=== PATIENT | female | born 1955 | race Caucasian/White ===

== ENCOUNTER 2020-09-30 08:54 | Day surgery (SDC) | payer MEDICARE, BC, SELFPAY ==
[2020-09-30 09:19] VITALS: BP 138/70; PULSE 70; RESP 18; TEMP 36.8; O2SAT 98
[2020-09-30] MEDS: Tropicam./Phenyleph. (1/2.5%) 5 ML BTL OD ×3 (09:22→09:35)
[2020-09-30] MEDS: Tetracaine 0.5% 4 ML BTL OD (09:55)
[2020-09-30] MEDS: Lidocaine 2% Jelly 6 ML SYR (09:56)
[2020-09-30] MEDS: Balanced Salt Soln.-PLUS 500 ML BAG (10:02)
[2020-09-30] MEDS: Lidocaine 1% Pres-Free 5 ML VIAL (10:03)
[2020-09-30] MEDS: Duovisc Viscoelastic System EACH 1 EACH (10:03)
[2020-09-30] MEDS: Povidone-Iodine Ophth 30 ML BTL ×2 (10:12→10:17)
[2020-09-30] MEDS: Trypan Blue 0.06% 0.5 ML SYR (10:13)
--- NOTE | 2020-09-30 10:30 | PDOC.DSDIS_ITS ---
Discharge Plan Disposition Patient Disposition: HOME Condition: Good Discharge Details Attending Provider: Jose Gunn Primary Care Provider: Gus Infante Home Meds and New Rx's Prescriptions: No Action multivitamin Tablet 1 tab PO DAILY RF: 0 calcium citrate 200 mg (950 mg) Tablet 600 mg PO DAILY RF: 0 Trosper 3 Fish Oil Capsule 1 cap PO DAILY RF: 0 cholecalciferol (vitamin D3) [Vitamin D3] 50 mcg (2,000 unit) Capsule 50 mcg PO DAILY RF: 0 lutein 6 mg Tablet 6 mg PO DAILY RF: 0 Petadolex 50 mg Capsule 50 mg PO DAILY RF: 0 aspirin 325 mg Tablet 325 mg PO DAILY RF: 0 alpha lipoic acid 50 mg Capsule 50 mg PO DAILY RF: 0 timolol maleate 0.5 % Drops, Once Daily 1 drp OPHTHALMIC (EYE) DAILY RF: 0 brimonidine 0.15 % Drops 1 drp OPHTHALMIC (EYE) QD-BID RF: 0 Discharge Instructions Stand Alone Forms: Post-op Topical Cataract Discharge Orders Discharge Orders: Discharge Order (Routine); Ordered 09/30/20 Ordered By: Jose Gunn DS: Diagnosis Discharge Diagnosis (1) Cortical cataract of right eye: Status: Resolved (2) Nuclear sclerotic cataract of right eye: Status: Resolved (3) Posterior subcapsular age-related cataract, right eye: Status: Resolved (4) Low-tension glaucoma, right eye, severe stage: Status: Chronic
--- NOTE | 2020-09-30 10:31 | ROE_ITS ---
Date of service: 09/30/20 Time of Service: 10:31 Operative Note Operative Note DATE OF PROCEDURE: 09/30/20 PRE-OP DIAGNOSIS: Nuclear/cortical/posterior subcapsular cataract, right eye Poor red reflex, right eye secondary to cataract Normal-tension glaucoma, right eye, severe stage Myopia, with desire to remain myopic postoperatively POST-OP DIAGNOSIS: same PROCEDURE: Cataract extraction using phacoemulsification with intraocular lens implantation, right eye, using capsular staining with Vision Blue SURGEON: Jose Gunn Refer to Anesthesia Record PATHOLOGY: none sent COMPLICATIONS: None Patient was transported to: same day Patient's condition: stable Implants: Jhony and Jhony / [employer] Tecnis [id number] Indications: Progressive visual loss due to cataract, right eye Procedure Description: CATARACT SURGERY OPERATIVE REPORT PREOPERATIVE DIAGNOSIS: 1. Nuclear/cortical/posterior subcapsular cataract, right eye 2. Poor red reflex secondary to #1 3. Normal-tension glaucoma, right eye, severe stage 4. Myopia, right eye, with desire to remain myopic postoperatively. POSTOPERATIVE DIAGNOSIS: Same OPERATION: 1. Cataract extraction using phacoemulsification with posterior chamber intraocular lens implant, right eye. 2. Capsular staining with Vision Blue IOL: IOL Calciminer/Model: Jhony [employer] Jhony / VAL Tecnis [id number] IOL Power: + 23.50 diopters IOL Serial Number: [id number] Optic Diameter: 6.0mm Haptic/Overall Diameter: 13.0mm PHACO INFO: Markus [employer]urion Vision System with OZil and Active Fluidics Cumulative Dispersed Energy (CDE): 12.50 seconds SURGEON: Jose Gunn MD, SOULEYMANE ANESTHESIA: Monitored Anesthesia Care (MAC), with local sub-tenon's anesthetic infiltration COMPLICATIONS: None SPECIMENS: None INDICATIONS FOR PROCEDURE: The patient is a 65-year-old lady with history of normal tension glaucoma of the right eye, severe stage. She has developed a significant nuclear/cortical/posterior subcapsular cataract of the right eye with corrected visual acuity of 2400 in the right eye. She also has a history of myopia and currently reads without glasses. She desires to remain myopic postoperatively with a postoperative refractive target of -2.0 to -2.25 diopters. The option of cataract surgery was offered to the patient and she wished to proceed. PROCEDURE: The correct surgical eye was identified and marked as the right eye and the pupil was dilated in the preoperative area using mydriatics and cyclopl egics. The dilated pupil size was 6.5 mm. Oral sedation was administered in the form of an Imprimis MKO Melt (midazolam 3mg/ketamine 25mg/ondansetron 2mg). The patient was brought to the operating room where cardiopulmonary monitoring was instituted and surgical time-out was performed, confirming the correct operative eye and IOL power. Topical anesthesia was administered and ophthalmic povidone-iodine 5% was instilled into the conjunctival fornices. Lidocaine gel was applied to the cornea and the anibal-ocular area was prepped with Betadine 10% solution and draped in the usual sterile fashion for intraocular surgery, including an aperture drape. A Tegaderm transparent film dressing was cut in half and used to cover the lashes and lid margins. Care was taken to sequester the lashes and lid margins under the Tegaderm dressing. A lid speculum was placed between the lids of the operative eye and the Alba-Sania operating microscope was maneuvered into position. Marion scissors were then used to make a conjunctival buttonhole approximately 6mm posterior to the limbus in the inferonasal quadrant. Blunt dissection was carried out to expose bare sclera, and a blunt-tipped sub-tenon?s anesthesia cannula was introduced and passed posteriorly along the globe where non- preserved plain lidocaine was injected into posterior sub-Tenon?s space. A sideport knife was used to make a paracentesis port inferotemporally. Intraocular phenylephrine/lidocaine was injected into the anterior chamber. Air was injected into the anterior chamber, followed by Vision Blue, which was painted over the anterior capsule and then irrigated out with BSS. The anterior chamber was filled with viscoelastic. A 2.4mm keratome knife was used to create a half-thickness groove at the limbus and then to construct a three-plane near- clear corneal tunnel extending 2.0mm into clear cornea superiortemporally. A flap was raised on the anterior capsule and capsulorhexis forceps were used to complete a continuous curvilinear capsulorhexis of 5.0 mm. Balanced salt solution was then used to perform cortical cleaving hydrodissection and nuclear hydrodelineation until the lens could be freely rotated within the capsular bag. The lens nucleus was then disassembled and removed within the capsular bag and iris plane using phacoemulsification. Residual cortical material was removed using the I/A handpiece. The posterior capsule was carefully polished to remove as much residual lens epithelial cells as safely possible. There was some residual posterior subcapsular plaque nasally which could not be safely removed despite extensive vacuuming and polishing. The capsular bag was then inflated and the anterior chamber deepened with viscoelastic. The lens implant described above was inserted into the capsular bag using the VAL [place] Injector. A Kuglen hook was used to dial the IOL into position. Residual viscoelastic was then removed first from posterior to the IOL, then from the anterior chamber using the I/A handpiece. The lens implant was noted to center nicely within the capsular bag. The incisions were stromally hydrated, and the anterior chamber was reformed using BSS. Then 0.5cc of moxifloxacin 1.0mg/ml were injected into the capsular bag and anterior chamber. The incisions were checked with a Weck spear and found to be secure. Several drops of ophthalmic povidone-iodine 5% were then applied to the eye followed by two drops of Imprimis combination prednisolone/moxifloxacin/nepafenac solution. The drapes were removed and a clear plastic protective eye shield was placed over the eye. The patient was then returned to Same Day Surgery in stable condition.
[2020-09-30] MEDS: Acetaminophen 500 MG TAB 1000 MG PO (10:36)
[2020-09-30 10:59] VITALS: BP 124/61; PULSE 72; RESP 16; TEMP 36.7; O2SAT 94
== END 2020-09-30 11:10 | disposition home or self-care (01) ==
PROVIDERS: PCP Family Medicine; Visit Provider Ophthalmology
PROC: (CPT 66982; principal; 2020-09-30 11:30)
DX: H25.011 Cortical age-related cataract, right eye (principal); H25.11 Age-related nuclear cataract, right eye; H25.041 Posterior subcapsular polar age-related cataract, right eye; H35.89 Other specified retinal disorders; H40.1213 Low-tension glaucoma, right eye, severe stage; H52.11 Myopia, right eye
CPT/HCPCS: 66982; V2632

== ENCOUNTER 2020-10-07 06:57 | Day surgery (SDC) | payer MEDICARE, BC, SELFPAY ==
[2020-10-07] MEDS: Tropicam./Phenyleph. (1/2.5%) 5 ML BTL OS ×3 (07:18→07:28)
[2020-10-07 07:21] VITALS: BP 138/58; PULSE 68; RESP 16; TEMP 36.6; O2SAT 98
[2020-10-07] MEDS: Tetracaine 0.5% 4 ML BTL OS (08:16)
[2020-10-07] MEDS: Balanced Salt Soln.-PLUS 500 ML BAG (08:17)
[2020-10-07] MEDS: Duovisc Viscoelastic System EACH 1 EACH (08:18)
[2020-10-07] MEDS: Lidocaine 1% Pres-Free 5 ML VIAL (08:19)
[2020-10-07] MEDS: Lidocaine 2% Jelly 6 ML SYR (08:19)
[2020-10-07] MEDS: Trypan Blue 0.06% 0.5 ML SYR (08:26)
[2020-10-07] MEDS: Povidone-Iodine Ophth 30 ML BTL (08:26)
--- NOTE | 2020-10-07 08:31 | PDOC.DSDIS_ITS ---
Discharge Plan Disposition Patient Disposition: HOME Condition: Good Discharge Details Attending Provider: Jose Gunn Primary Care Provider: Gus Infante Home Meds and New Rx's Prescriptions: No Action multivitamin Tablet 1 tab PO DAILY RF: 0 calcium citrate 200 mg (950 mg) Tablet 600 mg PO DAILY RF: 0 [place] 3 Fish Oil Capsule 1 cap PO DAILY RF: 0 cholecalciferol (vitamin D3) [Vitamin D3] 50 mcg (2,000 unit) Capsule 50 mcg PO DAILY RF: 0 lutein 6 mg Tablet 6 mg PO DAILY RF: 0 Petadolex 50 mg Capsule 50 mg PO DAILY RF: 0 aspirin 325 mg Tablet 325 mg PO DAILY RF: 0 alpha lipoic acid 50 mg Capsule 50 mg PO DAILY RF: 0 timolol maleate 0.5 % Drops, Once Daily 1 drp OPHTHALMIC (EYE) DAILY RF: 0 brimonidine 0.15 % Drops 1 drp OPHTHALMIC (EYE) QD-BID RF: 0 Discharge Instructions Stand Alone Forms: Post-op Topical Cataract, [place] ([facility]) Discharge Orders Discharge Orders: Discharge Order (Routine); Ordered 10/07/20 Ordered By: Jose Gunn DS: Diagnosis Discharge Diagnosis (1) Nuclear sclerotic cataract of left eye: Status: Resolved (2) Posterior subcapsular age-related cataract of left eye: Status: Resolved
--- NOTE | 2020-10-07 08:33 | W.PM.OP ---
Date of service: 10/07/20 Time of Service: 08:33 Operative Note Operative Note DATE OF PROCEDURE: 10/07/20 PRE-OP DIAGNOSIS: Nuclear/posterior subcapsular cataract, left eye Poor red reflex, left eye POST-OP DIAGNOSIS: same PROCEDURE: Cataract extraction using phacoemulsification with intraocular lens implant, left eye, using capsular staining with Vision Blue SURGEON: Jose Gunn Refer to Anesthesia Record COMPLICATIONS: None Patient was transported to: same day Patient's condition: stable Implants: Jhony and Jhony / [employer] Tecnis [id number] Indications: Progressive decreased vision due to cataract, left eye, with poor red reflex Procedure Description: CATARACT SURGERY OPERATIVE REPORT PREOPERATIVE DIAGNOSIS: 1.Nuclear/posterior subcapsular cataract, left eye 2. Poor red reflex secondary to #1 POSTOPERATIVE DIAGNOSIS: Same OPERATION: 1. Cataract extraction using phacoemulsification with posterior chamber intraocular lens implant, left eye. 2. Capsular staining with Vision Blue IOL: IOL Data Center Engineer/Model: Jhony & Jhony / VAL Tecnis ZCB00 IOL Power: + 21.5 diopters IOL Serial Number: [id number] Optic Diameter: 6.0 mm Haptic/Overall Diameter: 13.0 mm PHACO INFO: Markus [employer] Vision System with OZil and Active Fluidics Cumulative Dispersed Energy (CDE): 5.6 seconds SURGEON: Jose Gunn MD, SOULEYMANE ANESTHESIA: [facility] ([facility]), with local sub-tenon's anesthetic infiltration COMPLICATIONS: None SPECIMENS: None INDICATIONS FOR PROCEDURE: The patient is a 65-year-old lady with history of symptomatic bilateral cataracts. She has already undergone cataract surgery in her right eye and is doing well postoperatively. She has a history of head injury many years ago with poor vision in the right eye. She has a history of amblyopia of the left eye. The option of cataract surgery was offered to the patient and she wished to proceed. She desires to remain myopic postoperatively, with a refractive target of -2.0 diopters. PROCEDURE: The correct surgical eye was identified and marked as the left eye and the pupil was dilated in the preoperative area using mydriatics and cycloplegics. The dilated pupil size was 8.0mm. Oral sedation was administered in the form of an Imprimis MKO Melt (midazolam 3mg/ketamine 25mg/ondansetron 2mg). The patient was brought to the operating room where cardiopulmonary monitoring was instituted and surgical time-out was performed, confirming the correct operative eye and IOL power. Topical anesthesia was administered and ophthalmic povidone-iodine 5% was instilled into the conjunctival fornices. Lidocaine gel was applied to the cornea and the anibal-ocular area was prepped with Betadine 10% solution and draped in the usual sterile fashion for intraocular surgery, including an aperture drape. A Tegaderm transparent film dressing was cut in half and used to cover the lashes and lid margins. Care was taken to sequester the lashes and lid margins under the Tegaderm dressing. A lid speculum was placed between the lids of the operative eye and the Alba-Sania operating microscope was maneuvered into position. Marion scissors were then used to make a conjunctival buttonhole approximately 6mm posterior to the limbus in the inferonasal quadrant. Blunt dissection was carried out to expose bare sclera, and a blunt-tipped sub-tenon?s anesthesia cannula was introduced and passed posteriorly along the globe where non-preserved plain lidocaine was injected into posterior sub-Tenon?s space. A sideport knife was used to make a paracentesis port superiorly/superiortemporally. Intraocular phenylephrine/lidocaine was injected int the anterior chamber.. Air was then injected into the anterior chamber, followed by Vision Blue, which was painted over the anterior capsule and then irrigated out using BSS. The anterior chamber was filled with viscoelastic. A 2.4mm keratome knife was used to create a half-thickness groove at the limbus and then to construct a three-plane near-clear corneal tunnel extending 2.0mm into clear cornea at the 3:00 position. A flap was raised on the anterior capsule and capsulorhexis forceps were used to complete a continuous curvilinear capsulorhexis of 5.5 mm. Balanced salt solution was then used to perform cortical cleaving hydrodissection and nuclear hydrodelineation until the lens could be freely rotated within the capsular bag. The lens nucleus was then disassembled and removed within the capsular bag and iris plane using phacoemulsification. Residual cortical material was removed using the 45-degree angled silicone I/A tip with 0.3mm port. The posterior capsule was carefully polished to remove as much residual lens epithelial cells as safely possible. The capsular bag was then inflated and the anterior chamber deepened with viscoelastic. The lens implant described above was inserted into the capsular bag using the VAL [place] Injector. A Kuglen hook was used to dial the IOL into position. Residual viscoelastic was then removed first from posterior to the IOL, then from the anterior chamber using the I/A handpiece. The lens implant was noted to center nicely within the capsular bag. The incisions were stromally hydrated, and the anterior chamber was reformed using BSS. Then 0.5cc of moxifloxacin 1.0mg/ml were injected into the capsular bag and anterior chamber. The incisions were checked with a Weck spear and found to be secure. Several drops of ophthalmic povidone-iodine 5% were then applied to the eye followed by two drops of Imprimis combination prednisolone/moxifloxacin/nepafenac solution. The drapes were removed and a clear plastic protective eye shield was placed over the eye. The patient was then returned to Same Day Surgery in stable condition.
[2020-10-07 08:53] VITALS: BP 112/51; PULSE 73; RESP 16; TEMP 37; O2SAT 94
== END 2020-10-07 09:04 | disposition home or self-care (01) ==
PROVIDERS: PCP Family Medicine; Visit Provider Ophthalmology
PROC: (CPT 66982; principal; 2020-10-07 08:30)
DX: H25.12 Age-related nuclear cataract, left eye (principal); H25.042 Posterior subcapsular polar age-related cataract, left eye; H35.89 Other specified retinal disorders; Z98.41 Cataract extraction status, right eye; Z96.1 Presence of intraocular lens
CPT/HCPCS: 66982; V2632